=== PATIENT | female | born 1940 | race Caucasian/White ===

== ENCOUNTER → 2016-09-19 | Outpatient (CLI) | payer MEDICARE, BC ==
[~2016-09-19] MED LIST: ASPIRIN 81MG TA81 MG PO; AUGMENTIN 875-1 EACH PO; BACTRIM DS 8001 TAB PO; CLONIDINE HCL0.1 M1 PO; CLOPIDOGREL75 M2 PO; COLACE GENERIC100 MG PO; GLYBURIDE 5MG TA5 MG PO; HUMALOG MIX75/253 ML SC; HYDROCHLOROTHIA25 M1 PO; MELOXICAM15 MG PO; METHYLPREDNISONE4 MG PO; OMNICEF 300 MG300 MG PO; PHENAZOPYRIDIN200 MG PO
[2016-09-19 07:58] LABS: HEMOGLOBIN 15.4 g/dL (12.2-16.2); LYMPH # 1.4 K/mm3 (0.7-4.5); LYMPH % 17.2 % (10-50.0)
[2016-09-19 08:19] LABS: BUN 17 mg/dL (7-18)
[2016-09-19 08:22] LABS: GFR (ESTIMATED) 70 ML/MIN (59-)
== END ==
LOC: LAB 07:28
PROVIDERS: Internal Medicine Adolescent Medicine
DX: I63.50 Cerebral infarction due to unspecified occlusion or stenosis of unspecified cerebral artery (principal); E78.5 Hyperlipidemia, unspecified; E11.9 Type 2 diabetes mellitus without complications

== ENCOUNTER → 2017-05-21 | Outpatient (CLI) | payer MEDICARE, BC ==
[~2017-05-21] MED LIST changes: +MELOXICAM7.5 MG; +PEPCID40 MG
[2017-05-21 07:46] LABS: LYMPH # 1.4 K/mm3 (0.7-4.5); LYMPH % 19.4 % (10-50.0)
[2017-05-21 09:34] LABS: BUN 20 mg/dL (7-18)
[2017-05-21 09:35] LABS: GFR (ESTIMATED) 61 ML/MIN (59-)
== END ==
LOC: LAB 07:24
PROVIDERS: Internal Medicine Adolescent Medicine
DX: E11.9 Type 2 diabetes mellitus without complications (principal); E78.5 Hyperlipidemia, unspecified; I63.50 Cerebral infarction due to unspecified occlusion or stenosis of unspecified cerebral artery